=== PATIENT | male | born 1960 | race Two or more races ===

== ENCOUNTER 2017-08-08 06:50 | Emergency (ER) | payer SELFPAY ==
--- NOTE | 2017-08-08 07:15 | EDM.PDOC ---
ED HPI GENERAL MEDICAL PROBLEM - General Chief Complaint: Lower Extremity Injury/Pain Stated Complaint: RIGHT LEFT PAIN Time Seen by Provider: 08/08/17 07:08 - History of Present Illness INITIAL COMMENTS - FREE TEXT/NARRATIVE: HISTORY AND PHYSICAL: History of present illness: Patient 56-year-old male presents with concern of 1 history of pain in his buttock and right upper leg with radiation distally who intermittently has some paresthesia in that same region of the right leg. He comes today with increasing symptoms of the same quality and nature over last year off and on. Vessels history of high blood pressure and has been noncompliant with medications since he states they did not seem to be working. He denies chest pain shortness of breath abdominal pain nausea vomiting or any other complaints Review of systems: As per history of present illness and below otherwise all systems reviewed and negative. Past medical history: As per history of present illness and as reviewed below otherwise noncontributory. Surgical history: As per history of present illness and as reviewed below otherwise noncontributory. Social history: No reported history of drug or alcohol abuse. Family history: As per history of present illness and as reviewed below otherwise noncontributory. Physical exam: HEENT: Atraumatic, normocephalic, pupils reactive, negative for conjunctival pallor or scleral icterus, mucous membranes moist, throat clear, neck supple, nontender, trachea midline. Lungs: Clear to auscultation, breath sounds equal bilaterally, chest nontender. Heart: S1S2, regular, negative for clicks, rubs, or JVD. Abdomen: Soft, nondistended, nontender. Negative for masses or hepatosplenomegaly. Negative for costovertebral tenderness. Pelvis: Stable nontender. Genitourinary: Deferred. Rectal: Deferred. Extremities: Atraumatic, negative for cords or calf pain. Neurovascular unremarkable. Neuro: Awake, alert, oriented. Cranial nerves II through XII unremarkable. Cerebellum unremarkable. Motor and sensory unremarkable throughout. Exam nonfocal. Back: No vertebral body tenderness no point tenderness equivocal tenderness in the region of the sciatic notch and nerve. Patient is able stand on his toes back on his heels deep tendon reflexes are normal motor and sensory are unremarkable Diagnostics: CBC CMP troponin PT/INR chest x-ray lumbar spine x-ray Therapeutics: None Impression: 1 history hypertension with medical noncompliance #2 lumbar radiculopathy versus sciatic Definitive disposition and diagnosis as appropriate pending reevaluation and review of above. RIGHT THIGH Pain Score (Numeric/FACES): 7 - Related Data Allergies Allergy/AdvReac Type Severity Reaction Status Date / Time No Known Allergies Allergy Verified 08/08/17 07:03 Home Meds: Home Meds . [No Known Home Meds] 08/08/17 [History] Past Medical History Cardiovascular History: Reports: Hypertension Social & Family History - Family History Family Medical History: Noncontributory - Tobacco Use Smoking Status *Q: Never Smoker - Caffeine Use Caffeine Use: Reports: None - Recreational Drug Use Recreational Drug Use: No Review of Systems - Review of Systems Review Of Systems: ROS reveals no pertinent complaints other than HPI. ED EXAM, GENERAL - Physical Exam Exam: See Below (See dictation) Course - Vital Signs Last Recorded V/S: Last Vital Signs Temp 36.4 C 08/08/17 06:50 Pulse 83 08/08/17 06:50 Resp 18 08/08/17 06:50 BP 183/109 H 08/08/17 06:50 Pulse Ox 97 08/08/17 06:50 - Orders/Labs/Meds Orders: Active Orders 24 hr Category Date Time Status EKG Documentation Completion [RC] STAT Care 08/08/17 07:13 Active Chest 1V Frontal [CR] Stat Exams 08/08/17 07:13 Taken Lumbar Spine 2 or 3V [CR] Stat Exams 08/08/17 07:14 Taken Labs: Laboratory Tests 08/08/17 08/08/17 08/08/17 Range/Units 07:22 07:22 07:22 WBC 6.39 (4.0-11.0) K/uL RBC 5.44 (4.50-5.90) M/uL Hgb 16.1 (13.0-17.0) g/dL Hct 45.6 (38.0-50.0) % MCV 83.8 (80.0-98.0) fL MCH 29.6 (27.0-32.0) pg MCHC 35.3 (31.0-37.0) g/dL RDW Std Deviation 41.2 (28.0-62.0) fl RDW Coeff of Petty 14 (11.0-15.0) % Plt Count 271 (150-400) K/uL MPV 9.30 (7.40-12.00) fL Neut % (Auto) 65.4 (48.0-80.0) % Lymph % (Auto) 23.6 (16.0-40.0) % Clayton % (Auto) 7.5 (0.0-15.0) % Eos % (Auto) 3.0 (0.0-7.0) % Baso % (Auto) 0.5 (0.0-1.5) % Neut # (Auto) 4.2 (1.4-5.7) K/uL Lymph # (Auto) 1.5 (0.6-2.4) K/uL Clayton # (Auto) 0.5 (0.0-0.8) K/uL Eos # (Auto) 0.2 (0.0-0.7) K/uL Baso # (Auto) 0.0 (0.0-0.1) K/uL Nucleated RBC % 0.0 /100WBC Nucleated RBCs # 0 K/uL INR 1.02 Sodium 138 (136-148) mmol/L Potassium 4.3 (3.5-5.1) mmol/L Chloride 104 (98-107) mmol/L Carbon Dioxide 25.8 (21.0-32.0) mmol/L BUN 16 (7.0-18.0) mg/dL Creatinine 1.0 (0.8-1.3) mg/dL Est Cr Clr Drug Dosing 73.55 mL/min Estimated GFR (MDRD) > 60.0 ml/min Glucose 124 H (74-106) mg/dL Calcium 8.9 (8.5-10.1) mg/dL Total Bilirubin 0.5 (0.2-1.0) mg/dL AST 17 (15-37) IU/L ALT 30 (14-63) IU/L Alkaline Phosphatase 126 H (46-116) U/L CK-MB (CK-2) 2.6 (0-3.6) ng/mL Troponin I < 0.050 (0.000-0.056) ng/mL Total Protein 7.5 (6.4-8.2) g/dL Albumin 4.1 (3.4-5.0) g/dL Globulin 3.4 (2.0-3.5) g/dL Albumin/Globulin Ratio 1.2 L (1.3-2.8) Departure - Departure Time of Disposition: 08:19 Disposition: Home, Self-Care 01 Condition: Good Clinical Impression: Lumbar radiculopathy, Hypertension, Sciatica, Medical non-compliance - Discharge Information Forms: ED Department Discharge Additional Instructions: The following information is given to patients seen in the emergency department who are being discharged to home. This information is to outline your options for follow-up care. We provide all patients seen in our emergency department with a follow-up referral. The need for follow-up, as well as the timing and circumstances, are variable depending upon the specifics of your emergency department visit. If you don't have a primary care physician on staff, we will provide you with a referral. We always advise you to contact your personal physician following an emergency department visit to inform them of the circumstance of the visit and for follow-up with them and/or the need for any referrals to a consulting specialist. The emergency department will also refer you to a specialist when appropriate. This referral assures that you have the opportunity for followup care with a specialist. All of these measure are taken in an effort to provide you with optimal care, which includes your followup. Under all circumstances we always encourage you to contact your private physician who remains a resource for coordinating your care. When calling for followup care, please make the office aware that this follow-up is from your recent emergency room visit. If for any reason you are refused follow-up, please contact the [facility] emergency department at and asked to speak to the emergency department charge nurse. [facility] [address] [place] [id number] Hydrochlorothiazide hydrocodone Medrol Motrin as prescribed and follow-up with clinic above: Schedule appointment return as needed as discussed - My Orders Last 24 Hours: My Active Orders 08/08/17 07:13 EKG Documentation Completion [RC] STAT Chest 1V Frontal [CR] Stat 08/08/17 07:14 Lumbar Spine 2 or 3V [CR] Stat - Assessment/Plan Last 24 Hours: My Active Orders 08/08/17 07:13 EKG Documentation Completion [RC] STAT Chest 1V Frontal [CR] Stat 08/08/17 07:14 Lumbar Spine 2 or 3V [CR] Stat
[2017-08-08 08:02] LABS: CHLORIDE,CL 104 mmol/L (98-107); SODIUM,NA 138 mmol/L (136-148)
--- NOTE | 2017-08-08 09:43 | CR ---
EXAM DATE: 08/08/17 PATIENT'S AGE: 56 Patient: PAPITO APPIAH Facility: [place], [place] Site . Site : 1960 Study: XRay Chest [id number]/5/2018 7:48:51 AM Ordering Physician: Popeye Doherty Final Report: HISTORY: Hypertension, fall yesterday. FINDINGS: AP portable chest radiograph demonstrates a normal cardiac silhouette. Pulmonary vasculature is free of cephalization. No consolidation or pleural effusion is seen. No displaced rib fracture or pneumothorax. IMPRESSION: No acute cardiopulmonary disease. Dictated by Xiomy Santos MD @ 08/08/2017 8:01:43 AM Dictated by: Xiomy Satnos MD @ 08/08/2017 08:01:51 (Electronic Signature) Report Signed by Proxy. [facility]
--- NOTE | 2017-08-08 09:44 | CR ---
EXAM DATE: 08/08/17 PATIENT'S AGE: 56 Patient: PAPITO APPIAH Facility: [place], [place] Site . Site : 1960 Study: XRay Spine Lumbar [id number]/5/2018 7:49:08 AM Ordering Physician: Popeye Doherty Final Report: HISTORY: Low back pain, fall yesterday. FINDINGS/IMPRESSION: AP, lateral and coned down lateral views lumbar spine demonstrates a minimal S- shaped scoliosis. 5 lumbar vertebral bodies are present. Peridiscal spurring is seen within the lumbar spine. Decreased disc space and shalom discal spurring is seen at L1-2 and L4-5. There is 6 millimeters of retrolisthesis of L1 on L2. There is 12 mm of spondylolisthesis of L4 on L5. No definite pars defects identified. Vertebral body heights are maintained. Dictated by Xiomy Santos MD @ 08/08/2017 8:06:10 AM Dictated by: Xiomy Santos MD @ 08/08/2017 08:06:17 (Electronic Signature) Report Signed by Proxy. [facility]
== END 2017-08-08 08:33 | disposition home or self-care (01) ==
LOC: MW.ED 06:50
DX: M54.16 Radiculopathy, lumbar region (principal); I10 Essential (primary) hypertension; M54.30 Sciatica, unspecified side; Z91.14 Patient's other noncompliance with medication regimen
CPT/HCPCS: 36415; 71045; 71045-26; 72100; 72100-26; 80053; 82553; 84484; 85025; 85610; 93005; 99284-25